=== PATIENT | male | born 1950 | race African-American/Black ===

== ENCOUNTER 2017-10-22 12:04 | Emergency (ER) | payer MEDICARE ==
[2016-03-11 11:42] VITALS: BMI 19.0
[~2017-10-22 12:04] MED LIST: ADALAT CC90 MG PT; AMBIEN10 MG PT; BACTRIM DS TABL1 TAB PO; BAYER CHEWABLE81 MG PO; CATAPRES0.2 MG PT; CHRONULAC30 ML PT; FLOMAX0.4 MG PO; HALOPERIDOL2 MG PT; HYDRALAZINE HCL50 MG PT; LISINOPRIL10 MG NG; MEVACOR40 MG PT; MIRALAX17 GM PT; PHENYTOIN100 MG/4 M PO; PLAVIX75 MG PT; PRINIVIL20 MG PT; ZANTAC150 MG PT
[2017-10-22 12:52] LABS: BASOPHILS 0.2 % (0-2); EOSINOPHILS 6.7 % (0-7); HEMATOCRIT 45.4 % (42.0-54.0); HEMOGLOBIN 15.5 g/dL (13.5-17.5); LYMPHOCYTES 40.8 % (15-50); MCH 34.8 pg (26.0-34.0); MCHC 34.1 g/dL (31.0-37.0); MEAN PLATELET VOLUME 9.9 fL (7.4-10.4); MONOCYTES 8.4 % (2-11); NEUTROPHILS 43.9 % (40-80); RBC 4.45 10x6/uL (4.20-6.10); RDW 12.6 % (11.5-14.5); WBC 4.5 10x3/uL (4.8-10.8)
[2017-10-22 12:57] LABS: PLATELET COUNT 234 10x3/uL (130-400)
[2017-10-22 13:22] LABS: ALBUMIN 3.2 g/dL (3.4-5.0); ALKALINE PHOSPHATASE 102 U/L (46-116); ALT (SGPT) 25 U/L (10-68); CALC OSMOLALITY 282 mosm/kg (275-300); CALCIUM 8.9 mg/dL (8.5-10.1); CARBON DIOXIDE 26.9 mmol/L (21.0-32.0); CHLORIDE - SERUM 103 mmol/L (98-107); CREATININE - SERUM 0.7 mg/dL (0.6-1.3); GLUCOSE 95 mg/dL (74-106); POTASSIUM - SERUM 5.1 mmol/L (3.5-5.1); PROTEIN - SERUM 7.3 g/dL (6.4-8.2); SODIUM 139 mmol/L (136-145); UREA NITROGEN 27 mg/dL (7-18); eGFR NON AFRICAN AMERICAN > 90 mL/min (90-120)
[2017-10-22 13:29] LABS: LIPASE 350 U/L (73-393); PHENYTOIN (DILANTIN) 18.9 ug/mL (10.0-20.0); PRO BNP 72 pg/mL (0-125); TROPONIN-I < 0.017 ng/mL (0.000-0.060)
[2017-10-22 15:07] LABS: COLOR YELLOW (YELLOW)
[2017-10-22 15:08] LABS: APPEARANCE HAZY (CLEAR); BILIRUBIN NEGATIVE (NEGATIVE); GLUCOSE NEGATIVE (NEGATIVE); KETONE NEGATIVE (NEGATIVE); NITRITE NEGATIVE (NEGATIVE); PROTEIN 1+ mg/dL (NEGATIVE); UROBILINOGEN NORMAL (NORMAL)
[2017-10-22 15:11] LABS: BACTERIA MANY /hpf (NONE SEEN); RED CELLS - URINE 0-5 /hpf (0-5)
== END 2017-10-22 17:15 | disposition home or self-care (01) ==
LOC: D.ER 12:04
PROVIDERS: Family Medicine
DX: N39.0 Urinary tract infection, site not specified (principal); K56.7 Ileus, unspecified; I10 Essential (primary) hypertension

== ENCOUNTER 2018-07-09 10:26 | Inpatient (IN) | payer MEDICARE ==
[~2018-07-09] VITALS: Ht 172.7 cm; Wt 54.5 kg
[2018-07-09 10:51] VITALS: BP 151/93
[2018-07-09 11:51] LABS: BASOPHILS 0.2 % (0-2); EOSINOPHILS 0.4 % (0-7); HEMATOCRIT 41.5 % (42.0-54.0); HEMOGLOBIN 14.1 g/dL (13.5-17.5); IMMATURE GRANULOCYTES 0.2 % (0-5); LYMPHOCYTES 17.1 % (15-50); MCH 34.6 pg (26.0-34.0); MEAN PLATELET VOLUME 10.3 fL (7.4-10.4); MONOCYTES 6.5 % (2-11); NEUTROPHILS 75.6 % (40-80); PLATELET COUNT 231 10x3/uL (130-400); RBC 4.07 10x6/uL (4.20-6.10); WBC 5.7 10x3/uL (4.8-10.8)
[2018-07-09 12:08] LABS: ALBUMIN 3.1 g/dL (3.4-5.0); ALKALINE PHOSPHATASE 114 U/L (46-116); ALT (SGPT) 26 U/L (10-68); AMYLASE - SERUM 103 U/L (25-115); BILIRUBIN - TOTAL 0.25 mg/dL (0.2-1.3); CALC OSMOLALITY 283 mosm/kg (275-300); CALCIUM 8.7 mg/dL (8.5-10.1); CARBON DIOXIDE 27.5 mmol/L (21.0-32.0); CHLORIDE - SERUM 106 mmol/L (98-107); CREATININE - SERUM 0.8 mg/dL (0.6-1.3); LIPASE 384 U/L (73-393); POTASSIUM - SERUM 4.3 mmol/L (3.5-5.1); SODIUM 139 mmol/L (136-145); UREA NITROGEN 21 mg/dL (7-18); eGFR NON AFRICAN AMERICAN > 90 mL/min (90-120)
[2018-07-09 12:09] LABS: GLUCOSE 145 mg/dL (74-106)
[2018-07-09 13:04] LABS: APPEARANCE CLOUDY (CLEAR); BILIRUBIN NEGATIVE (NEGATIVE); COLOR YELLOW (YELLOW); GLUCOSE NEGATIVE (NEGATIVE); KETONE NEGATIVE (NEGATIVE); NITRITE POSITIVE (NEGATIVE); PROTEIN NEGATIVE (NEGATIVE); SPECIFIC GRAVITY 1.005 (1.005-1.020); UROBILINOGEN NORMAL (NORMAL)
[2018-07-09 13:05] LABS: AMORPHOUS SEDIMENT >1+ /lpf (NONE SEEN); BACTERIA FEW /hpf (NONE SEEN); EPITHELIAL CELLS RARE /hpf (0-5); RED CELLS - URINE NONE SEEN /hpf (0-5); WHITE CELLS - URINE NSEEN /hpf (0-5); YEAST NONE SEEN /hpf (NONE SEEN)
[2018-07-09 17:00] VITALS: BP 137/86
[2018-07-09 18:03] VITALS: BP 146/85
[2018-07-09 20:00] VITALS: BP 139/87
[2018-07-10] VITALS: BP 158/85
[2018-07-10 03:23] VITALS: BP 139/87; Ht 172.7 cm; Wt 54.5 kg
[2018-07-10 04:00] VITALS: BP 161/89
[2018-07-10 07:48] LABS: BASOPHILS 0 % (0-2); EOSINOPHILS 3.6 % (0-7); HEMATOCRIT 38.9 % (42.0-54.0); HEMOGLOBIN 13.2 g/dL (13.5-17.5); LYMPHOCYTES 31.6 % (15-50); MCH 34.3 pg (26.0-34.0); MCHC 33.9 g/dL (31.0-37.0); MEAN PLATELET VOLUME 10.5 fL (7.4-10.4); MONOCYTES 7.8 % (2-11); PLATELET COUNT 220 10x3/uL (130-400); RBC 3.85 10x6/uL (4.20-6.10); RDW 14.2 % (11.5-14.5); WBC 4.7 10x3/uL (4.8-10.8)
[2018-07-10 07:59] LABS: ALBUMIN 2.9 g/dL (3.4-5.0); ALKALINE PHOSPHATASE 99 U/L (46-116); ALT (SGPT) 24 U/L (10-68); BILIRUBIN - TOTAL 0.48 mg/dL (0.2-1.3); CALC OSMOLALITY 281 mosm/kg (275-300); CALCIUM 8.9 mg/dL (8.5-10.1); CARBON DIOXIDE 27.4 mmol/L (21.0-32.0); CHLORIDE - SERUM 106 mmol/L (98-107); CREATININE - SERUM 0.7 mg/dL (0.6-1.3); GLUCOSE 93 mg/dL (74-106); POTASSIUM - SERUM 4.6 mmol/L (3.5-5.1); PROTEIN - SERUM 6.5 g/dL (6.4-8.2); SODIUM 140 mmol/L (136-145); UREA NITROGEN 21 mg/dL (7-18); eGFR NON AFRICAN AMERICAN > 90 mL/min (90-120)
[2018-07-10 08:18] VITALS: BP 140/77
[2018-07-10] MEDS ORDERED: ASPIRIN325 MG PEG (12:38)
[2018-07-10 13:26] VITALS: BP 116/68
[2018-07-11 08:20] LABS: FOLATE (FOLIC ACID) - SERUM >20.0 ng/mL (>3.0)
== END 2018-07-10 19:48 | disposition home health service (06) | DRG 377 ==
LOC: D.ER 10:26 → D.EDHOLD 15:23 → D.MS 15:23 → D.EDHOLD 15:23 → D.MS 15:32
PROVIDERS: Family Medicine; Internal Medicine Gastroenterology
PROC: 0DB78ZX Excision of Stomach, Pylorus, Via Natural or Artificial Opening Endoscopic, Diagnostic (ICD-10-PCS; principal; 2018-07-09 16:45)
DX: K92.2 Gastrointestinal hemorrhage, unspecified (principal); R53.2 Functional quadriplegia; I69.354 Hemiplegia and hemiparesis following cerebral infarction affecting left non-dominant side; K29.70 Gastritis, unspecified, without bleeding; K29.80 Duodenitis without bleeding; I10 Essential (primary) hypertension; F41.9 Anxiety disorder, unspecified; Z74.01 Bed confinement status; N40.1 Benign prostatic hyperplasia with lower urinary tract symptoms; R33.8 Other retention of urine